=== PATIENT | female | born 1965 | race African-American/Black ===

== ENCOUNTER 2017-07-15 10:53 | Inpatient (IN) | payer OTHER ==
--- NOTE | 2017-07-15 11:55 | ER Document Report ---
ED General - General Mode of Arrival: Ambulatory Information source: Patient TRAVEL OUTSIDE OF THE [place] IN LAST 30 DAYS: No <TYRELL SEBASTIAN - Last Filed: 07/15/17 15:53> <YANA MARES - Last Filed: 07/15/17 15:56> - General Chief Complaint: Doesn't Feel Right Stated Complaint: UNABLE TO CONTROL RIGHT SIDE Time Seen by Provider: 07/15/17 11:48 Notes: Patient is a 51-year-old female with a history of hypertension, diabetes and high cholesterol presents to the emergency department complaining of being unable to control her right arm onset yesterday around 1700 which improved then worsened again this morning although improving at bedside. Patient states that her right arm would involuntarily shake intermittently. Patient and sister also mentions recognizing some changes in her voice and slurring of speech. (TYRELL SEBASTIAN) - Related Data Allergies/Adverse Reactions: No Known Allergies Allergy (Verified 07/15/17 13:21) Past Medical History - General Information source: Patient - Social History Smoking Status: Never Smoker Cigarette use (# per day): No Chew tobacco use (# tins/day): No Smoking Education Provided: No Frequency of alcohol use: None Drug Abuse: None Family History: Reviewed & Not Pertinent - Past Medical History Cardiac Medical History: Reports: Hx Hypercholesterolemia, Hx Hypertension Endocrine Medical History: Reports: Hx Diabetes Mellitus Type 2 <TYRELL SEBASTIAN - Last Filed: 07/15/17 15:53> Review of Systems - Review of Systems Constitutional: No symptoms reported EENT: No symptoms reported Cardiovascular: No symptoms reported Respiratory: No symptoms reported Gastrointestinal: No symptoms reported Genitourinary: No symptoms reported Female Genitourinary: No symptoms reported Musculoskeletal: See HPI Skin: No symptoms reported Hematologic/Lymphatic: No symptoms reported Neurological/Psychological: See HPI -: Yes All other systems reviewed and negative <TYRELL SEBASTIAN - Last Filed: 07/15/17 15:53> Physical Exam <TYRELL SEBASTAIN - Last Filed: 07/15/17 15:53> <YANA MARES - Last Filed: 07/15/17 15:56> - Vital signs Vitals: Temp Pulse Resp BP Pulse Ox 97.6 F 110 H 17 161/92 H 97 07/15/17 11:11 07/15/17 11:11 07/15/17 11:11 07/15/17 11:11 07/15/17 11:11 - Notes Notes: GENERAL: Alert, interacts well. No acute distress. HEAD: Normocephalic, atraumatic. EYES: Pupils equal, round, and reactive to light. Extraocular movements intact. ENT: Oral mucosa moist, tongue midline. NECK: Full range of motion. Supple. Trachea midline. LUNGS: Clear to auscultation bilaterally, no wheezes, rales, or rhonchi. No respiratory distress. HEART: Regular rate and rhythm. No murmurs, gallops, or rubs. ABDOMEN: Soft, non-tender. Non-distended. Bowel sounds present in all 4 quadrants. EXTREMITIES: Moves all 4 extremities spontaneously. No edema, radial and dorsalis pedis pulses 2/4 bilaterally. No cyanosis. NEUROLOGICAL: See NIH. 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 Some ataxia with heel to buckner on the right. Not a TPA candidate due to rapidly improving symptoms. PSYCH: Normal affect, normal mood. SKIN: Warm, dry, normal turgor. No rashes or lesions noted. 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 Cardiac enzymes are negative, CT scan of the head is negative for acute bleed or large stroke, chest x-ray is unremarkable. Patient is not a candidate for TPA as her symptoms started yesterday and have been waxing and waning she is both out of timeframe and more consistent with a TIA. Patient was discussed with Dr. Rm who is going to accept the patient to her service on the telemetry care unit. Patient and sister are aware of why she will not be receiving TPA. (YANA MARES ) - Vital Signs Vital signs: Temp Pulse Resp BP Pulse Ox 97.6 F 109 H 20 146/98 H 96 07/15/17 11:11 07/15/17 11:50 07/15/17 14:31 07/15/17 14:31 07/15/17 14:31 - Laboratory Laboratory results interpreted by me: 07/15/17 07/15/17 12:08 13:04 WBC 12.3 H RBC 5.51 H Seg Neutrophils % 83.2 H Lymphocytes % 12.9 L Absolute Neutrophils 10.2 H Creatinine 0.43 L Glucose 404 H* Calcium 10.9 H Creatine Kinase 24 L - EKG Interpretation by Me Additional EKG results interpreted by me: 07/15/17 14:18 EKG shows sinus tachycardia at a rate of 109, normal axis, normal intervals, no ST segment elevations or depressions, no T-wave inversions, rapid R-wave progression, LVH per my interpretation. 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 of insulin; Z79.4 - jail (current) use of insulin; Z79.4 - keno terminal operator (current) use of insulin; Z79.4 - jail (current) use of insulin Hypertension Qualifiers: Hypertension type: essential hypertension Qualified Code(s): I10 - Essential ( primary) hypertension Stroke Qualifiers: CVA mechanism: unspecified Qualified Code(s): I63.9 - Cerebral infarction, unspecified Condition: Fair Disposition: ADMITTED INPATIENT Scribe Attestation: 07/15/17 15:56 I personally performed the services described in the documentation, reviewed and edited the documentation which was dictated to the scribe in my presence, and it accurately records my words and actions. (YANA MRAES) ED NIH Stroke Scale - NIH Stroke Scale *: 1. NIH scale should be completed with appropriate accompanying assessment tools. *: 2. The NIH should reflect what the patient is capable of doing and should not be coached by the clinician. 1a. Level of Consciousness: 0=Alert;keenly responsive -: 1=Drowsy -: 2=Obtunded -: 3=Coma/unresponsive or reflex to noxious stimuli. 1a. Responses: 0 1b. Orientation Questions: a. What month is it? -: b. How old are you? -: 0=Answers both questions correctly. -: 1=Answers one question correctly or patient is intubated or has orotracheal trauma. -: 2=Answers neither question correctly. 1b. Responses: 0 1c. Response to commands: a. Open and close eyes? -: b. 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 -: Credit is given despite weakness. Demonstration of task is permitted. Substitute command if hands cannot be used. -: 0=Performs both tasks correctly -: 1=Performs one task correctly -: 2=Performs neither task correctly 1c. Responses: 0 2. Gaze: Establish eye contact and instruct patient to "Follow my finger" -: 0=Normal -: 1=Partial gaze palsy. Gaze is abnormal in one or both eyes, but where forced deviation or total gaze paresis is not present. -: 2=Forced deviation or total gaze paresis. 2. Responses: 0 3. Visual Sloan: Sees fingers in all four quadrants. -: 0=No visual loss. -: 1=Partial hemianopsia. -: 2=Complete hemianopsia. -: 3=Bilateral hemianopsia (including Cortical blindness) 3. Responses: 0 4. Facial Movement: Instruct patient to: -: a. Show me your teeth -: b. Raise your eyebrows -: c. Close your eyes -: d. Smile -: 0=Normal symmetrical movement -: 1=Minor paralysis (flattened nasolabial fold, asymmetry on smiling). -: 2=Partial paralysis (total or near total paralysis of lower face). -: 3=Complete paralysis of upper and lower face 4. Responses: 0 5. Motor functions (left arm): Alternate sides and extend each arm with palms down (90 degrees if sitting or 45 degrees for supine). -: 0=No drift;limb holds for full 10 seconds. -: 1=Drift; limb holds but drifts down before full 10 seconds, but does not hit bed. -: 2=Some effort against gravity; limb cannot get to or maintain position. -: 3=No effort against gravity; limb falls. -: 4=No movement. -: UN=Amputation, joint fusion, explain in comments. 5. Responses (left arm): 0 5. Motor Functions (right arm): Alternate sides and extend each arm with palms down (90 degrees if sitting or 45 degrees for supine). -: 0=No drift;limb holds for full 10 seconds. -: 1=Drift; limb holds but drifts down before full 10 seconds, but does not hit bed. -: 2=Some effort against gravity; limb cannot get to or maintain position. -: 3=No effort against gravity; limb falls. -: 4=No movement. -: UN=Amputation, joint fusion, explain in comments. 5. Responses (right arm): 0 6. Motor Functions (left leg): With patient lying supine, alternate sides and extend each leg (30 degrees always while supine). -: 0=No drift, leg holds position for full 5 seconds -: 1=Drift; leg falls before full 5 seconds but does not hit bed. -: 2=Some effort against gravity, leg falls to bed but some effort against gravity. -: 3=No effort against gravity, leg falls to bed immediately. -: 4=No movement. -: UN=Amputation, joint fusion; explain in comments. 6. Responses (left leg): 0 6. Motor Functions (right leg): With patient lying supine, alternate sides and extend each leg (30 degrees always while supine). -: 0=No drift, leg holds position for full 5 seconds -: 1=Drift; leg falls before full 5 seconds but does not hit bed. -: 2=Some effort against gravity, leg falls to bed but some effort against gravity. -: 3=No effort against gravity, leg falls to bed immediately. -: 4=No movement. -: UN=Amputation, joint fusion; explain in comments. 6. Responses (right leg): 1 7. Limb Ataxia: With eyes open instruct patient to: -: a. "Touch your finger to your nose". -: b. "Touch your heel to your buckner" -: 0=Absent -: 1=Present in one limb. -: 2=Present in two limbs. -: UN=Amputation or joint fusion; explain in comments. 7. Responses: 1 7. If ataxia present choose as appropriate: Right leg 8. Sensory: Test sensation using pinprick or noxious stimuli. Test as many body parts as possible. -: 0=Normal;no sensory loss -: 1=Mile to moderate sensory loss (patient feels pin prick but is less sharp on affected side). -: 2=Severe or total sensory loss. 8. Responses: 0 9. Best Language: Instruct patient to: -: a. "Describe what you see in this picture." -: b. "Name the items in this picture." -: c. "Read these sentences." -: 0=No aphasia, normal -: 1=Mild to moderate aphasia. -: 2=Severe aphasia -: 3=Mute, global aphasia, no usable speech or auditory comprehension. 9. Responses: 1 10. Articulation, Dysarthia: Instruct patient to: -: "Read these words" or "Repeat these words" -: 0=Normal -: 1=Mild to moderate; patient may slur some words but can be understood without difficulty. -: 2=Severe; patients speech so slurred as to be unintelligible in the absence of dysphasia. -: UN=Intubated or other physical barrier, explain in comments. 10. Responses: 1 11. Extinction or inattention: 0=No abnormality -: 1= Visual, tactile, auditory, spatial, or personal inattention or extinction to bilateral simulation in one or the sensory modalities. -: 2=Profound ruth-inattention or ruth-inattention to more than one modality; does not recognize own hand. 11. Responses: 0 Total Score: 4 <TYRELL SEBASTIAN - Last Filed: 07/15/17 15:53> ED [employer]/Exc Criteria - Date/Time patient last known well: Date/Time: 07/24/2016 17:00 - Date/Time patient arrived in ED: _: 07/15/2017 10:53 - Inclusion Criteria: 1: Patient presented to ED within 3 hours of acute ischemic stroke symptom onset ? -: No 2: Did baseline CT exclude intracranial hemorrhage and/or other risk factors? 3: Is the age of the patient 18 years of age or greater? -: Yes : If any of the above questions are answered "NO" then stop, patient is not a candidate for Alteplase, : If all of the above questions are answered "YES" then continue with Exclusion Criteria. - The patient is: -: Included and is eligible to receive Alteplase. *Initiate bed placement at higher level of care* --: No Reviewd risks & benefits of thrombolytic therapy: I have reviewed the risks and benefits of thrombolytic therapy with the patient and/or his/her family. -: Excluded and not eligible to receive Alteplase for the above exclusions. --: Yes -: Excluded and not eligible to receive Alteplase for other reasons (specify in comments): <TYRELL SEBASTIAN - Last Filed: 07/15/17 15:53> - Inclusion Criteria: 1: Patient presented to ED within 3 hours of acute ischemic stroke symptom onset ? 2: Did baseline CT exclude intracranial hemorrhage and/or other risk factors? -: Yes 3: Is the age of the patient 18 years of age or greater? : If any of the above questions are answered "NO" then stop, patient is not a candidate for Alteplase, : If all of the above questions are answered "YES" then continue with Exclusion Criteria. - Diagnosis of TIA: -: Patient presented with transient symptoms that are now resolved and no other neurologic findings are currently present. List symptoms in comments. -: Patient is NOT a candidate for tPA. -: ____(put name in comment) has been consulted for admission and continued evaluation of risk factor assessment. Comment: Sujey <AYNA MARES - Last Filed: 07/15/17 15:56>
[2017-07-15 12:46] LABS: ABSOLUTE LYMPHOCYTES (AUTO) 1.6 10^3/uL (0.5-4.7); ABSOLUTE MONOCYTES (AUTO) 0.4 10^3/uL (0.1-1.4); ABSOLUTE NEUT (AUTO) 10.2 10^3/uL (1.7-8.2); BASOPHILS % (AUTO) 0.4 % (0-2); EOSINOPHILS % (AUTO) 0.1 % (0-6); HEMATOCRIT 46.3 % (36.0-47.0); LYMPHOCYTES % (AUTO) 12.9 % (13-45); MEAN CORPUSCULAR HEMOGLOBIN 27.2 pg (27.0-33.4); MEAN CORPUSCULAR HGB CONC 32.4 g/dL (32.0-36.0); MEAN CORPUSCULAR VOLUME 84 fl (80-97); MONOCYTES % (AUTO) 3.4 % (3-13); RED BLOOD COUNT 5.51 10^6/uL (3.72-5.28); RED CELL DISTRIBUTION WIDTH 13.1 % (11.5-14.0); SEGMENTED NEUTROPHILS % (AUTO) 83.2 % (42-78); TOTAL CELLS COUNTED % (AUTO) 100 %; WHITE BLOOD COUNT 12.3 10^3/uL (4.0-10.5)
--- NOTE | 2017-07-15 12:56 | RADIOLOGY REPORT (SQ) ---
EXAM DESCRIPTION: CT HEAD WITHOUT COMPLETED DATE/TIME: 07/15/2017 12:43 pm REASON FOR STUDY: right sided weakness COMPARISON: None. TECHNIQUE: Axial images acquired through the brain without intravenous contrast. Images reviewed wi th bone, brain and subdural windows. CT Images stored on PACS. All CT scanners at this facility use dose modulation, iterative reconstruction, and/or weight based d osing when appropriate to reduce radiation dose to as low as reasonably achievable (ALARA). [facility]: Dose Right [facility]: CareDose [facility]: Dose Right [facility]: Teradose 4D [facility]: Smart WhereNet RADIATION DOSE: CT Rad equipment meets quality standard of care and radiation dose reduction techniq ues were employed. CTDIvol: 53.2 mGy. DLP: 1017 mGy-cm. mGy. LIMITATIONS: None. FINDINGS: VENTRICLES: Normal size and contour. CEREBRUM: No masses. No hemorrhage. No midline shift. No evidence for acute infarction. Normal gra y/white matter differentiation. No areas of low density in the white matter. CEREBELLUM: No masses. No hemorrhage. No alteration of density. No evidence for acute infarction. EXTRAAXIAL SPACES: No fluid collections. No masses. ORBITS AND GLOBE: No intra- or extraconal masses. Normal contour of globe without masses. CALVARIUM: No fracture. PARANASAL SINUSES: No fluid. Trace mucosal thickening left maxillary antrum. SOFT TISSUES: No mass or hematoma. OTHER: No other significant finding. IMPRESSION: NORMAL BRAIN CT WITHOUT CONTRAST. EVIDENCE OF ACUTE STROKE: No COMMENT: Quality ID # [id number]: Final reports with documentation of one or more dose reduction techniques (e.g., Automated exposure control, adjustment of the mA and/or kV according to patient size, use of iterative reconstruction technique) TECHNICAL DOCUMENTATION: JOB ID: [id number] [employer]- All Rights Reserved Reading location - IP/workstation name: [facility]
--- NOTE | 2017-07-15 12:58 | RADIOLOGY REPORT (SQ) ---
EXAM DESCRIPTION: CHEST SINGLE VIEW COMPLETED DATE/TIME: 07/15/2017 12:47 pm REASON FOR STUDY: right sided weakness COMPARISON: None. EXAM PARAMETERS: NUMBER OF VIEWS: One view. TECHNIQUE: Single frontal radiographic view of the chest acquired. RADIATION DOSE: NA LIMITATIONS: None. FINDINGS: LUNGS AND PLEURA: No opacities, masses or pneumothorax. No pleural effusion. MEDIASTINUM AND HILAR STRUCTURES: No masses. Contour normal. HEART AND VASCULAR STRUCTURES: Heart normal in size. Normal vasculature. BONES: No acute findings. HARDWARE: None in the chest. OTHER: No other significant finding. IMPRESSION: NO ACUTE RADIOGRAPHIC FINDING IN THE CHEST. TECHNICAL DOCUMENTATION: JOB ID: [id number] [employer]- All Rights Reserved Reading location - IP/workstation name: [email or web address]
[2017-07-15 12:59] LABS: PLATELET COUNT 321 10^3/uL (150-450)
--- NOTE | 2017-07-15 13:01 | EKG REPORT ---
SEVERITY:- ABNORMAL ECG - SINUS TACHYCARDIA CONSIDER LEFT VENTRICULAR HYPERTROPHY : Confirmed by: Julio Vang MD 15-Jul-2017 13:00:50
[2017-07-15 13:26] LABS: INTERNATIONAL RATION (INR) 0.93; PARTIAL THROMBOPLASTIN TIME 28.9 SEC (23.5-35.8); PROTHROMBIN TIME 12.9 SEC (11.4-15.4)
[2017-07-15 13:35] LABS: ALANINE AMINOTRANSFERASE 39 U/L (9-52); ALBUMIN 4.8 g/dL (3.5-5.0); ALKALINE PHOSPHATASE 126 U/L (38-126); ANION GAP 13 (5-19); ASPARTATE AMINO TRANSFERASE 34 U/L (14-36); BILIRUBIN,DIRECT 0.4 mg/dL (0.0-0.4); BILIRUBIN,TOTAL 0.6 mg/dL (0.2-1.3); BLOOD UREA NITROGEN 13 mg/dL (7-20); CALCIUM 10.9 mg/dL (8.4-10.2); CARBON DIOXIDE 25 mmol/L (22-30); CHLORIDE 103 mmol/L (98-107); CREATINE KINASE 24 U/L (30-135); POTASSIUM 4.7 mmol/L (3.6-5.0); SODIUM 140.7 mmol/L (137-145)
[2017-07-15 13:48] LABS: CREATINE KINASE MB < 0.22 ng/mL (<4.55); TROPONIN I < 0.012 ng/mL
[2017-07-15 13:49] LABS: GLUCOSE 404 mg/dL (75-110)
[2017-07-15] MEDS ORDERED: INSULIN REG, HUMAN 100 UNIT/ML 3 ML VIAL (PYX) SUBCUT ONE (14:16)
[2017-07-15] MEDS ORDERED: ONDANSETRON HCL INJ/PF 4 MG/2 ML SDV IV PRN (14:18)
[2017-07-15] MEDS ORDERED: OXYCODONE-ACETAMINOPHEN 5-325 MG TABLET PO PRN (14:18)
[2017-07-15] MEDS ORDERED: ACETAMINOPHEN 325 MG TABLET PO PRN (14:18)
[2017-07-15] MEDS ORDERED: ZOLPIDEM TARTRATE 5 MG TABLET PO PRN (14:18)
[2017-07-15] MEDS ORDERED: DEXTROSE 40% GEL 15 GM TUBE PO PRN ×2 (14:26)
[2017-07-15] MEDS ORDERED: DEXTROSE 50%-WATER 25 GM/50 ML DISP.SYRIN IV PRN ×2 (14:26)
[2017-07-15] MEDS ORDERED: GLUCAGON,HUMAN RECOMB 1 MG INJ IM PRN (14:26)
[2017-07-15] MEDS ORDERED: ASPIRIN 325 MG TABLET PO ONE (15:00)
--- NOTE | 2017-07-15 15:55 | RADIOLOGY REPORT (SQ) ---
EXAM DESCRIPTION: MRI HEAD WITHOUT COMPLETED DATE/TIME: 07/15/2017 3:39 pm REASON FOR STUDY: acute neurologic syndrome COMPARISON: CT brain 07/15/2017 TECHNIQUE: Multiplanar imaging includes non-contrasted T1, T2, FLAIR, and diffusion with ADC map seq uences. Images stored on PACS. LIMITATIONS: None. FINDINGS: ANATOMY: No developmental anomalies. Normal vascular flow voids. Pituitary fossa normal. CSF SPACES: Normal in size and contour. No hemorrhage. CEREBRUM: Sulci and gyri normal in size and contour. Minimal spotty increased bifrontal and bipariet al white matter signal on FLAIR imaging from chronic small vessel ischemic change. No evidence of ac bettye hemorrhage, mass, or extraaxial fluid collection. POSTERIOR FOSSA: Diffusion-weighted images are positive for several small acute nonhemorrhagic infarc ts in the right cerebellar hemisphere. Remainder of the posterior fossa structures are otherwise unr emarkable. No hemorrhage. No mass effect or midline shift. Basilar cisterns unremarkable. DIFFUSION IMAGING: Positive for acute ischemic change in the right cerebellar hemisphere ORBITS: No masses. Globes normal. PARANASAL SINUSES: No fluid levels. Mucosa normal. OTHER: Report called to Dr. Rm IMPRESSION: Small nonhemorrhagic acute right cerebellar infarcts are present. EVIDENCE OF ACUTE STROKE: Yes COMMENT: Pertinent findings on the imaging study reported as a CRITICAL RESULT to ROCÍO RM MD at15:40 on 07/15/2017. Category of Critical Result: Acute nonhemorrhagic right cerebellar infarcts TECHNICAL DOCUMENTATION: JOB ID: [id number] [employer]- All Rights Reserved Reading location - IP/workstation name: [email or web address]
[2017-07-15] MEDS: INSULIN LISPRO 100 UNIT/ML 3 ML VIAL SUBCUT SCH (16:46)
[2017-07-15] MEDS ORDERED: NORMAL SALINE 1000 ML 1,000 ML IV ONE (17:03)
--- NOTE | 2017-07-15 17:03 | PDOC H&P ---
History of Present Illness History of Present Illness: ALEJANDRO MERA is a 51 year old female Past Medical History Cardiac Medical History: Reports: Hyperlipidema, Hypertension Pulmonary Medical History: Reports: None EENT Medical History: Reports: None Neurological Medical History: Reports: None Endocrine Medical History: Reports: Diabetes Mellitus Type 2 Renal/ Medical History: Reports: None Malignancy Medical History: Reports: None, Other - Non-Hodgkin's lymphoma GI Medical History: Reports: None Musculoskeltal Medical History: Reports: None Skin Medical History: Reports: None Psychiatric Medical History: Reports: None Traumatic Medical History: Reports: None Hematology: Reports: None Infectious Medical History: Reports: None Past Surgical History Past Surgical History: Reports: Other - Port-A-Cath, Sinus surgery Social History Information Source: Patient Lives with: Family Smoking Status: Never Smoker Frequency of Alcohol Use: None Hx Recreational Drug Use: Yes Drugs: None Hx Prescription Drug Abuse: No - Advance Directive Resuscitation Status: Full Code Family History Family History: Reviewed & Not Pertinent, CAD, CVA, DM, Hyperlipidemia, Malignancy Parental Family History Reviewed: Yes Children Family History Reviewed: Yes Sibling(s) Family History Reviewed.: Yes Medication/Allergy Home Medications: Insulin Aspart [Novolog Flexpen] 0 unit SUBCUT .SLD SCALE 07/15/17 Insulin Detemir [Levemir] 45 unit SQ QHS 07/15/17 Lisinopril 10 mg PO DAILY 07/15/17 Allergies/Adverse Reactions: No Known Allergies Allergy (Verified 07/15/17 13:21) Review of Systems Constitutional: PRESENT: weight loss. ABSENT: anorexia, chills, fatigue, headache(s) Eyes: ABSENT: visual disturbances Ears: ABSENT: hearing changes Nose, Mouth, and Throat: ABSENT: mouth pain, sore throat Cardiovascular: ABSENT: chest pain, dyspnea on exertion, edema Respiratory: ABSENT: dyspnea, hemoptysis Gastrointestinal: ABSENT: abdominal pain, nausea, vomiting Genitourinary: ABSENT: dysuria Musculoskeletal: ABSENT: deformity Neurological: PRESENT: abnormal speech, focal weakness Endocrine: PRESENT: polydipsia, polyuria Hematologic/Lymphatic: ABSENT: lymphadenopathy Physical Exam Vital Signs: Temp Pulse Resp BP Pulse Ox 97.6 F 109 H 16 158/96 H 98 07/15/17 11:11 07/15/17 11:50 07/15/17 11:50 07/15/17 11:50 07/15/17 11:50 Intake & Output 07/14/17 07/15/17 07/16/17 06:59 06:59 06:59 Weight 81.6 kg General appearance: PRESENT: no acute distress, cooperative, well-developed, well-nourished Head exam: PRESENT: atraumatic, normocephalic Eye exam: PRESENT: conjunctiva pink, EOMI, PERRLA Ear exam: PRESENT: normal external ear exam Mouth exam: PRESENT: moist Neck exam: PRESENT: full ROM. ABSENT: carotid bruit, JVD, lymphadenopathy, tenderness, thyromegaly Respiratory exam: PRESENT: clear to auscultation rory Cardiovascular exam: PRESENT: RRR. ABSENT: diastolic murmur, systolic murmur Vascular exam: PRESENT: normal capillary refill GI/Abdominal exam: PRESENT: soft. ABSENT: normal bowel sounds, tenderness Extremities exam: PRESENT: full ROM. ABSENT: pedal edema Musculoskeletal exam: PRESENT: ambulatory Neurological exam: PRESENT: alert, awake, oriented to person, oriented to place , oriented to time, oriented to situation, CN II-XII grossly intact. ABSENT: aphasic Psychiatric exam: PRESENT: appropriate affect, normal mood Skin exam: PRESENT: intact, normal color Results Laboratory Results: 07/15/17 12:08 07/15/17 13:04 07/15/17 07/15/17 07/15/17 12:08 12:08 13:04 WBC 12.3 H RBC 5.51 H Hgb 15.0 Hct 46.3 MCV 84 MCH 27.2 MCHC 32.4 RDW 13.1 Plt Count 321 Seg Neutrophils % 83.2 H Lymphocytes % 12.9 L Monocytes % 3.4 Eosinophils % 0.1 Basophils % 0.4 Absolute Neutrophils 10.2 H Absolute Lymphocytes 1.6 Absolute Monocytes 0.4 Absolute Eosinophils 0.0 Absolute Basophils 0.0 Sodium Cancelled 140.7 Potassium Cancelled 4.7 Chloride Cancelled 103 Carbon Dioxide Cancelled 25 Anion Gap Cancelled 13 BUN Cancelled 13 Creatinine Cancelled 0.43 L Est GFR ( Amer) Cancelled > 60 Est GFR (Non-Af Amer) Cancelled > 60 Glucose Cancelled 404 H* Calcium Cancelled 10.9 H Total Bilirubin Cancelled 0.6 AST Cancelled 34 ALT Cancelled 39 Alkaline Phosphatase Cancelled 126 Total Protein Cancelled 8.0 Albumin Cancelled 4.8 07/15/17 07/15/17 07/15/17 12:08 12:08 13:04 Creatine Kinase Cancelled 24 L CK-MB (CK-2) Cancelled Troponin I Cancelled 07/15/17 13:04 Creatine Kinase CK-MB (CK-2) < 0.22 Troponin I < 0.012 Impressions: Chest X-Ray 07/15/17 12:18 IMPRESSION: NO ACUTE RADIOGRAPHIC FINDING IN THE CHEST. Head CT 07/15/17 12:18 IMPRESSION: NORMAL BRAIN CT WITHOUT CONTRAST. EVIDENCE OF ACUTE STROKE: No Assessment & Plan - Diagnosis (1) Dysarthria due to acute cerebellar stroke Is this a current diagnosis for this admission?: Yes Plan: MRI requested showed cerebellar findings of acute stroke. Patient informed. Will Place Lipitor and enteric-coated aspirin. Will discuss later with neurologist on-call to look for advise. However patient is not a candidate for TPA but just round up the treatment on this patient (2) Hypertension Qualifiers: Hypertension type: essential hypertension Qualified Code(s): I10 - Essential (primary) hypertension Is this a current diagnosis for this admission?: Yes Plan: For now will hold off aggressive treatment in the setting of acute stroke (3) Type 2 diabetes mellitus with hyperglycemia Qualifiers: Diabetes mellitus terminal superintendent insulin use: with longterm use Qualified Code( s): E11.65 - Type 2 diabetes mellitus with hyperglycemia; Z79.4 - terminal superintendent ( current) use of insulin; Z79.4 - [facility] (current) use of insulin; Z79.4 - terminal superintendent (current) use of insulin; Z79.4 - [facility] (current) use of insulin Is this a current diagnosis for this admission?: Yes Plan: Patient will be placed on long-acting insulin, pre-meal Humalog and Humalog sliding scale with bedside glucose before meals and at bedtime. Will request hemoglobin A1c. Patient will be placed on Lipitor. - Time Time Spent: 30 to 50 Minutes Medications reviewed and adjusted accordingly: Yes Anticipated discharge: Home Within: within 24 hours - Inpatient Certification Based on my medical assessment, after consideration of the patient's comorbidities, presenting symptoms, or acuity I expect that the services needed warrant INPATIENT care.: Yes I certify that my determination is in accordance with my understanding of Medicare's requirements for reasonable and necessary INPATIENT services [42 CFR 412.3e].: Yes Medical Necessity: Need Close Monitoring Due to Risk of Patient Decompensation, Need For Continuous Telemetry Monitoring
[2017-07-15] MEDS: ATORVASTATIN CALCIUM 40 MG TABLET PO SCH (21:57)
[2017-07-15] MEDS: INSULIN LISPRO 100 UNIT/ML 3 ML VIAL SUBCUT PRN (21:58)
[2017-07-15] MEDS: HEPARIN SOD (PORCINE) 5,000 UNIT/ML 1 ML SYRINGE SUBCUT SCH (22:00)
[2017-07-15] MEDS: INSULIN GLARGINE,HUM.REC.ANLOG 300 UNIT/3 ML INSULN.PEN SUBCUT SCH (22:03)
[2017-07-16] MEDS: HEPARIN SOD (PORCINE) 5,000 UNIT/ML 1 ML SYRINGE SUBCUT SCH ×3 (06:05→21:59)
[2017-07-16 07:16] LABS: ABSOLUTE EOSINOPHILS # (AUTO) 0.1 10^3/uL (0.0-0.6); ABSOLUTE LYMPHOCYTES (AUTO) 2.3 10^3/uL (0.5-4.7); ABSOLUTE MONOCYTES (AUTO) 0.4 10^3/uL (0.1-1.4); ABSOLUTE NEUT (AUTO) 4.4 10^3/uL (1.7-8.2); BASOPHILS % (AUTO) 0.3 % (0-2); EOSINOPHILS % (AUTO) 1.3 % (0-6); HEMOGLOBIN 13.6 g/dL (12.0-15.5); LYMPHOCYTES % (AUTO) 32.4 % (13-45); MEAN CORPUSCULAR HEMOGLOBIN 27.2 pg (27.0-33.4); MEAN CORPUSCULAR HGB CONC 32.4 g/dL (32.0-36.0); MEAN CORPUSCULAR VOLUME 84 fl (80-97); MONOCYTES % (AUTO) 5.6 % (3-13); PLATELET COUNT 286 10^3/uL (150-450); RED BLOOD COUNT 5.01 10^6/uL (3.72-5.28); SEGMENTED NEUTROPHILS % (AUTO) 60.4 % (42-78); TOTAL CELLS COUNTED % (AUTO) 100 %; WHITE BLOOD COUNT 7.2 10^3/uL (4.0-10.5)
[2017-07-16 07:29] LABS: ANION GAP 9 (5-19); BLOOD UREA NITROGEN 15 mg/dL (7-20); CALCIUM 9.8 mg/dL (8.4-10.2); CARBON DIOXIDE 28 mmol/L (22-30); CHLORIDE 101 mmol/L (98-107); CHOLESTEROL 253.01 mg/dL (0-200); GLUCOSE 321 mg/dL (75-110); POTASSIUM 4.3 mmol/L (3.6-5.0); SODIUM 137.7 mmol/L (137-145); TRIGLYCERIDES 265 mg/dL (<150)
[2017-07-16 07:39] LABS: DIRECT LDL 157 mg/dL (<100)
[2017-07-16] MEDS: INSULIN LISPRO 100 UNIT/ML 3 ML VIAL SUBCUT SCH ×3 (09:51→18:03)
[2017-07-16] MEDS: INSULIN LISPRO 100 UNIT/ML 3 ML VIAL SUBCUT PRN ×2 (09:51→13:15)
[2017-07-16] MEDS: INSULIN GLARGINE,HUM.REC.ANLOG 300 UNIT/3 ML INSULN.PEN SUBCUT SCH ×2 (09:51→22:34)
[2017-07-16] MEDS: ASPIRIN 325 MG TABLET PO SCH (09:52)
[2017-07-16] MEDS: DOCUSATE SODIUM 100 MG CAPSULE PO SCH (09:52)
--- NOTE | 2017-07-16 15:57 | RADIOLOGY REPORT (SQ) ---
EXAM DESCRIPTION: CAROTID DOPPLER COMPLETED DATE/TIME: 07/16/2017 3:32 pm REASON FOR STUDY: acute neurologic syndrome COMPARISON: CT brain 07/15/2017, MRI brain 07/15/2017 TECHNIQUE: Grayscale ultrasound, Doppler velocity and spectra, and color Doppler images acquired of the extra-cranial carotid and vertebral arteries. Images stored on PACS. LIMITATIONS: None. FINDINGS: RIGHT CAROTID CCA Velocities: Within normal limits. ICA Velocities Peak systolic 0.73 m/s. End diastolic 0.16 m/s. Proximal ICA/CCA peak systolic ratio 1.9. Spectra normal. No significant plaque. LEFT CAROTID CCA Velocities: Within normal limits. ICA Velocities Peak systolic 0.80 m/s. End diastolic 0.22 m/s. Proximal ICA/CCA peak systolic ratio 1.1. Spectra normal. No significant plaque. VERTEBRAL ARTERIES: Antegrade flow. Normal waveforms. SUBCLAVIAN ARTERIES: Not evaluated OTHER: No other significant finding. IMPRESSION: NO HEMODYNAMICALLY SIGNIFICANT STENOSIS. COMMENT: Quality ID #[id number]: Velocity criteria are extrapolated from the diameter data as defined by t he Society of Radiologists in Ultrasound Consensus Conference. Radiology 2003: 229; 340-346. TECHNICAL DOCUMENTATION: JOB ID: [id number] [employer]- All Rights Reserved Reading location - IP/workstation name: [facility]
--- NOTE | 2017-07-16 17:54 | PDOC PROGRESS REPORT ---
Subjective Progress Note for:: 07/16/17 Subjective:: No complaints. Review of system All organ systems evaluated and negative except as in subjective All significant laboratories and diagnostics have been reviewed Reason For Visit: TIA UNCONTROLLED DIABETES MELLITUS Physical Exam Vital Signs: Temp Pulse Resp BP Pulse Ox 97.9 F 107 H 16 144/96 H 96 07/16/17 07:37 07/16/17 07:37 07/16/17 07:37 07/16/17 07:37 07/16/17 07:37 Intake & Output 07/15/17 07/16/17 07/17/17 06:59 06:59 06:59 Intake Total 315 Balance 315 Weight 85.4 kg General appearance: PRESENT: no acute distress, cooperative, obese Head exam: PRESENT: atraumatic, normocephalic Eye exam: PRESENT: conjunctiva pink, EOMI, PERRLA Ear exam: PRESENT: normal external ear exam Mouth exam: PRESENT: moist Neck exam: PRESENT: full ROM. ABSENT: JVD, lymphadenopathy, tenderness Respiratory exam: PRESENT: clear to auscultation rory Cardiovascular exam: PRESENT: RRR. ABSENT: diastolic murmur, systolic murmur Vascular exam: PRESENT: normal capillary refill GI/Abdominal exam: PRESENT: normal bowel sounds, soft. ABSENT: tenderness Extremities exam: PRESENT: full ROM. ABSENT: pedal edema Musculoskeletal exam: PRESENT: ambulatory Neurological exam: PRESENT: alert, awake, oriented to person, oriented to place , oriented to time, oriented to situation, CN II-XII grossly intact Psychiatric exam: PRESENT: appropriate affect, normal mood Skin exam: PRESENT: intact, normal color Results Laboratory Results: 07/16/17 06:30 07/16/17 06:30 07/16/17 07/16/17 07/16/17 06:30 06:30 06:30 WBC 7.2 RBC 5.01 Hgb 13.6 Hct 42.0 MCV 84 MCH 27.2 MCHC 32.4 RDW 13.0 Plt Count 286 Seg Neutrophils % 60.4 Lymphocytes % 32.4 Monocytes % 5.6 Eosinophils % 1.3 Basophils % 0.3 Absolute Neutrophils 4.4 Absolute Lymphocytes 2.3 Absolute Monocytes 0.4 Absolute Eosinophils 0.1 Absolute Basophils 0.0 Sodium 137.7 Potassium 4.3 Chloride 101 Carbon Dioxide 28 Anion Gap 9 BUN 15 Creatinine 0.53 Est GFR ( Amer) > 60 Est GFR (Non-Af Amer) > 60 Glucose 321 H Calcium 9.8 Magnesium 1.6 Triglycerides 265 H Cholesterol 253.01 H LDL Cholesterol Direct 157 H VLDL Cholesterol 53.0 H HDL Cholesterol 47 TSH 1.68 07/15/17 07/16/17 07/16/17 18:25 00:17 06:30 Troponin I < 0.012 < 0.012 < 0.012 Impressions: Chest X-Ray 07/15/17 12:18 IMPRESSION: NO ACUTE RADIOGRAPHIC FINDING IN THE CHEST. Head CT 07/15/17 12:18 IMPRESSION: NORMAL BRAIN CT WITHOUT CONTRAST. EVIDENCE OF ACUTE STROKE: No Head MRI 07/15/17 14:25 IMPRESSION: Small nonhemorrhagic acute right cerebellar infarcts are present. EVIDENCE OF ACUTE STROKE: Yes Assessment & Plan - Diagnosis (1) Dysarthria due to acute cerebellar stroke Is this a current diagnosis for this admission?: Yes Plan: MRI requested showed cerebellar findings of acute stroke. Patient informed. Carotid Dopplers negative. Echocardiogram pending. Continue current management. (2) Hypertension Qualifiers: Hypertension type: essential hypertension Qualified Code(s): I10 - Essential (primary) hypertension Is this a current diagnosis for this admission?: Yes Plan: For now will hold off aggressive treatment in the setting of acute stroke. To order Norvasc and lisinopril (3) Type 2 diabetes mellitus with hyperglycemia Qualifiers: Diabetes mellitus exterminator helper termite insulin use: with senior living use Qualified Code( s): E11.65 - Type 2 diabetes mellitus with hyperglycemia; Z79.4 - long-term ( current) use of insulin; Z79.4 - watermelon inspector (current) use of insulin; Z79.4 - long-term (current) use of insulin; Z79.4 - watermelon inspector (current) use of insulin Is this a current diagnosis for this admission?: Yes Plan: Wade [place], pre-meal Humalog and continue Humalog sliding scale. Patient notified about A1c result which was higher than 14 - Time Time Spent with patient: 15-24 minutes Medications reviewed and adjusted accordingly: Yes Anticipated discharge: Home Within: within 24 hours - Inpatient Certification Based on my medical assessment, after consideration of the patient's comorbidities, presenting symptoms, or acuity I expect that the services needed warrant INPATIENT care.: Yes I certify that my determination is in accordance with my understanding of Medicare's requirements for reasonable and necessary INPATIENT services [42 CFR 412.3e].: Yes Medical Necessity: Significant Comorbidiites Make Outpatient Treatment Too Risky , Need For Continuous Telemetry Monitoring
[2017-07-16] MEDS ORDERED: AMLODIPINE BESYLATE 5 MG TABLET PO SCH (18:00)
[2017-07-16] MEDS ORDERED: LISINOPRIL 10 MG TABLET PO ONE (18:30)
--- NOTE | 2017-07-16 18:34 | XCELERA REPORT ---
[address] [address] Transthoracic Echocardiogram Report Name: ALEJANDRO MERA Age: 51 yrs Gender: Female : 1965 Patient Status: Inpatient Patient Location: [address] [place] [address] Study Date: 07/16/2017 01:32 PM Height: 66 in Weight: 179 lb BSA: 1.9 m2 Procedure: A complete two-dimensional transthoracic echocardiogram was performed (2D, M-mode, spectral and color flow Doppler). The study was technically adequate with some images being suboptimal in quality. Reason For Study: acute neurologic deficit Ordering Physician: ROCÍO MENENDEZ Performed By: Triny Rivera Interpretation Summary Left ventricular systolic function is low normal. There is mild concentric left ventricular hypertrophy. The left ventricle is grossly normal size. Doppler measurements suggest pseudonormalized left ventricular relaxation, which is associated with grade II/IV or mild to moderate diastolic dysfunction Wall motion cannot be accurately commented on, but no definite regional wall motion abnormalities noted. The right ventricle is grossly normal size. The right ventricular systolic function is normal. The right atrium is normal in size The left atrial size is normal. There is a mild amount of mitral regurgitation There is no mitral valve stenosis. There is no aortic valve stenosis No aortic regurgitation is present. There is a trace or physiologic amount of tricuspid regurgitation Tricuspid regurgitation jet envelope not well defined to measure RV systolic pressure accurately. The aortic root is not well visualized but is probably normal size. The inferior vena cava appeared small and collapsed with respiration (RAP 0-5 mmHg) No definite cardiac source of CVA/TIA noted on this particular trans- thoracic study. Consider OSMAN if clinically indicated. May consider mobile cardiac telemetry monitoring (MCT) for ruling out transient AFIB. MMode/2D Measurements & Calculations RVDd: 2.2 cm LVIDd: 4.0 cm FS: 31.7 % Ao root diam: 2.6 cm IVSd: 0.96 cm LVIDs: 2.7 cm EDV(Teich): 69.9 ml LVPWd: 1.0 cm ESV(Teich): 27.7 ml Ao root area: 5.5 cm2 EF(Teich): 60.3 % LVOT diam: 2.0 cm LVOT area: 3.0 cm2 Doppler Measurements & Calculations MV E max jim: MV dec slope: Ao V2 max: LV V1 max P.6 cm/sec 392.0 cm/sec2 132.7 cm/sec 2.6 mmHg MV A max jim: MV dec time: Ao max PG: LV V1 max: 93.0 cm/sec 0.16 sec 7.0 mmHg 80.5 cm/sec MV E/A: 0.67 GILLIAN(V,D): 1.8 cm2 PA V2 max: TR max jim: 87.0 cm/sec 230.9 cm/sec PA max PG: TR max P.3 mmHg 3.0 mmHg Left Ventricle The left ventricle is grossly normal size. There is mild concentric left ventricular hypertrophy. Left ventricular systolic function is low normal. Doppler measurements suggest pseudonormalized left ventricular relaxation, which is associated with grade II/IV or mild to moderate diastolic dysfunction. Wall motion cannot be accurately commented on, but no definite regional wall motion abnormalities noted. Right Ventricle The right ventricle is grossly normal size. The right ventricular systolic function is normal. Atria The right atrium is normal in size. The left atrial size is normal. Interarterial septum not well visualized and not well dopplered. Cannot comment on ASD/PFO presence. Mitral Valve There is mild mitral leaflet calcification. There is no mitral valve stenosis. There is a mild amount of mitral regurgitation. Aortic Valve The aortic valve is grossly normal. There is no aortic valve stenosis. No aortic regurgitation is present. Tricuspid Valve The tricuspid valve is not well visualized, but is grossly normal. There is no tricuspid stenosis. There is a trace or physiologic amount of tricuspid regurgitation. Tricuspid regurgitation jet envelope not well defined to measure RV systolic pressure accurately. Pulmonic Valve The pulmonic valve is not well seen, but is grossly normal. Great Vessels The aortic root is not well visualized but is probably normal size. The inferior vena cava appeared small and collapsed with respiration (RAP 0-5 mmHg). Effusions There is no pericardial effusion. Incidental Findings No definite cardiac source of CVA/TIA noted on this particular trans- thoracic study. Consider OSMAN if clinically indicated. May consider mobile cardiac telemetry monitoring (MCT) for ruling out transient AFIB. : ROCÍO MENENDEZ > Ej Olvera
[2017-07-16] MEDS: ATORVASTATIN CALCIUM 40 MG TABLET PO SCH (21:58)
[2017-07-16] MEDS ORDERED: INSULIN GLARGINE,HUM.REC.ANLOG 300 UNIT/3 ML INSULN.PEN SUBCUT SCH (22:00)
[2017-07-16] MEDS ORDERED: IBUPROFEN 800 MG TABLET ONE (22:25)
[2017-07-17] MEDS: HEPARIN SOD (PORCINE) 5,000 UNIT/ML 1 ML SYRINGE SUBCUT SCH (06:24)
[2017-07-17] MEDS: INSULIN LISPRO 100 UNIT/ML 3 ML VIAL SUBCUT SCH (08:08)
[2017-07-17] MEDS ORDERED: FENOFIBRATE NANOCRYSTALLIZED 145 MG TABLET PO SCH (10:00)
[2017-07-17] MEDS ORDERED: LISINOPRIL 10 MG TABLET PO SCH (10:00)
[2017-07-17] MEDS: INSULIN GLARGINE,HUM.REC.ANLOG 300 UNIT/3 ML INSULN.PEN SUBCUT SCH (10:01)
[2017-07-17] MEDS: DOCUSATE SODIUM 100 MG CAPSULE PO SCH (10:02)
[2017-07-17] MEDS: ASPIRIN 325 MG TABLET PO SCH (10:02)
[2017-07-17 12:36] VITALS: BP 125/77
--- NOTE | 2017-07-17 17:18 | Physician Advisory Note ---
Physician Advisor ProgressNote .: Pursuant to the plan for [facility], I have reviewed the medical record for this patient. Physician Advisor Statement: H&P states "focal weakness" (+) on ROS - please document whether there was any hemiparesis, etc, present in addition to dysarthria. Thanks! CK
--- NOTE | 2017-07-17 18:05 | PDOC DISCHARGE SUMMARY ---
General - Admit/Disc Date/PCP Admission Date/Primary Care Provider: 07/15/17 15:13 Discharge Date: 07/17/17 - Discharge Diagnosis (1) Cerebellar stroke, acute Is this a current diagnosis for this admission?: Yes (2) Hypertension Is this a current diagnosis for this admission?: Yes (3) Type 2 diabetes mellitus with hyperglycemia Is this a current diagnosis for this admission?: Yes (4) Hyperlipidemia associated with type 2 diabetes mellitus Is this a current diagnosis for this admission?: Yes - Additional Information Resuscitation Status: Full Code Discharge Diet: Diabetic Discharge Activity: Activity As Tolerated Home Medications: Insulin Aspart [Novolog Flexpen] 0 unit SUBCUT .SLD SCALE MDD NOT CURRENTLY TAKING 07/15/17 Insulin Detemir [Levemir] 45 unit SQ QHS MDD NOT CURRENTLY TAKING 07/15/17 Lisinopril 10 mg PO DAILY MDD NOTCURRENTLY TAKING 07/15/17 Acetaminophen [Tylenol 325 mg Tablet] 325 mg PO Q4HP PRN tablet 07/17/17 Amlodipine Besylate [Norvasc 5 mg Tablet] 5 mg PO QPM tablet 07/17/17 Aspirin [Aspirin 325 mg Tablet] 325 mg PO DAILY tablet 07/17/17 Atorvastatin Calcium [Lipitor 40 mg Tablet] 40 mg PO QHS tablet 07/17/17 Fenofibrate Nanocrystallized [Tricor 145 mg Tablet] 145 mg PO DAILY tablet 03/24 Lisinopril [Prinivil 10 mg Tablet] 10 mg PO DAILY tablet 07/17/17 History of Present Illness History of Present Illness: ALEJANDRO is a 51 years old female who presented to emergency room complaining of difficulty articulating her words prior to presenting to emergency room. Patient also reported having some left-sided weakness last night. She did not make much about it and went to sleep. Upon awakening it was noted her difficulty talking. By the time she arrived to emergency room it has resolved. She denies having a similar episode. She does admit having a history of diabetes and she took herself off because he was tired of getting the insulin shots. She is currently on no medications for high blood pressure. There is a strong family history of high blood pressure, diabetes and stroke. Due to presentation being highly suggestive of a TIA the hospitalist service was consulted and prompted to admit Hospital Course Hospital Course: The patient presented with dysarthria complaints had resolved and she did not have any deficits on the left side. MRI of the head demonstrated acute findings of a cerebral stroke. Patient was placed on enteric-coated aspirin full-strength. In addition patient was placed on Lipitor 40 mg p.o. daily and TriCor for the management of hyperlipidemia. Hemoglobin A1c was obtained and was higher than 14. Patient was made aware that it was of utmost important as to achieve good control of diabetes to prevent any further complications or stroke or recurrence. She was educated about the consequences of uncontrolled diabetes including heart attack, stroke, circulation problems and kidney involvement. Carotid Dopplers were negative. Echocardiogram was consistent with diastolic dysfunction. Patient was placed on discharged on Norvasc and lisinopril. As far as the management of diabetes she was prescribed Levemir and pre-meal NovoLog. She is to follow-up with Dr. Ruiz. We hope that he will continue monitoring and adjusting insulin regimen. Patient remained stable with not recurrence of dysarthria or weakness. Recommend Dr. Ruiz to consider or drain an event monitor over 1 month to look for arrhythmias. Patient has been strongly encouraged as to lifestyle modification and appears to be motivated. Patient has been reminded to come immediately to emergency room if symptoms were to recur. Since she has been stable and achieved maximum benefit of hospitalization stay prompted to discharge Physical Exam Vital Signs: Temp Pulse Resp BP Pulse Ox 98.0 F 100 20 132/74 H 95 07/17/17 04:19 07/17/17 06:00 07/17/17 06:00 07/17/17 06:00 07/17/17 06:00 Intake & Output 07/16/17 07/17/17 07/18/17 06:59 06:59 06:59 Intake Total 315 1466 Balance 315 1466 Weight 85.4 kg 86.4 kg General appearance: PRESENT: no acute distress, cooperative, obese Head exam: PRESENT: atraumatic, normocephalic Eye exam: PRESENT: conjunctiva pink, EOMI, PERRLA Mouth exam: PRESENT: moist Neck exam: PRESENT: full ROM. ABSENT: JVD, lymphadenopathy, tenderness Respiratory exam: PRESENT: clear to auscultation rory Cardiovascular exam: PRESENT: RRR. ABSENT: diastolic murmur, systolic murmur Vascular exam: PRESENT: normal capillary refill GI/Abdominal exam: PRESENT: normal bowel sounds, soft. ABSENT: tenderness Extremities exam: PRESENT: full ROM. ABSENT: pedal edema Musculoskeletal exam: PRESENT: ambulatory Neurological exam: PRESENT: alert, awake, oriented to person, oriented to place , oriented to time, oriented to situation, CN II-XII grossly intact Psychiatric exam: PRESENT: appropriate affect, normal mood Skin exam: PRESENT: intact, normal color Results Laboratory Results: 07/16/17 06:30 07/16/17 06:30 07/16/17 07/16/17 07/16/17 06:30 06:30 06:30 WBC 7.2 RBC 5.01 Hgb 13.6 Hct 42.0 MCV 84 MCH 27.2 MCHC 32.4 RDW 13.0 Plt Count 286 Seg Neutrophils % 60.4 Lymphocytes % 32.4 Monocytes % 5.6 Eosinophils % 1.3 Basophils % 0.3 Absolute Neutrophils 4.4 Absolute Lymphocytes 2.3 Absolute Monocytes 0.4 Absolute Eosinophils 0.1 Absolute Basophils 0.0 Sodium 137.7 Potassium 4.3 Chloride 101 Carbon Dioxide 28 Anion Gap 9 BUN 15 Creatinine 0.53 Est GFR ( Amer) > 60 Est GFR (Non-Af Amer) > 60 Glucose 321 H Calcium 9.8 Magnesium 1.6 Triglycerides 265 H Cholesterol 253.01 H LDL Cholesterol Direct 157 H VLDL Cholesterol 53.0 H HDL Cholesterol 47 TSH 1.68 07/15/17 07/16/17 07/16/17 18:25 00:17 06:30 Troponin I < 0.012 < 0.012 < 0.012 Impressions: Chest X-Ray 07/15/17 12:18 IMPRESSION: NO ACUTE RADIOGRAPHIC FINDING IN THE CHEST. Head CT 07/15/17 12:18 IMPRESSION: NORMAL BRAIN CT WITHOUT CONTRAST. EVIDENCE OF ACUTE STROKE: No Head MRI 07/15/17 14:25 IMPRESSION: Small nonhemorrhagic acute right cerebellar infarcts are present. EVIDENCE OF ACUTE STROKE: Yes Carotid Doppler Study 07/16/17 00:00 IMPRESSION: NO HEMODYNAMICALLY SIGNIFICANT STENOSIS. Qualifiers - * PATEINT BEING DISCHARGED WITH ANY OF THE FOLLOWING DIAGNOSIS?: Stroke Stroke Pt being discharged on Anti-thrombolytic therapy?: Yes Stroke Pt being discharged on Anti-coagulation therapy?: Yes Stroke Pt being discharged on Statins?: Yes Plan Discharge Plan: Patient will be discharged home. She is to follow-up with Dr. Ruiz as scheduled. Time Spent: Less than 30 Minutes
== END 2017-07-17 13:14 | disposition home or self-care (01) | DRG 65 ==
LOC: ER 10:53 → EH 15:13 → OBSVTOIN 15:13 → INTOOBSV 15:13 → 3S 17:40 → OBSVTOIN 07-16 14:16 → UNDODISIN 07-17 13:14
PROVIDERS: ADMIT Family Medicine; ATTEND Family Medicine
DX: I63.341 Cerebral infarction due to thrombosis of right cerebellar artery (principal); G81.94 Hemiplegia, unspecified affecting left nondominant side; C85.90 Non-Hodgkin lymphoma, unspecified, unspecified site; R47.1 Dysarthria and anarthria; E11.65 Type 2 diabetes mellitus with hyperglycemia; I10 Essential (primary) hypertension; E78.00 Pure hypercholesterolemia, unspecified; I25.2 Old myocardial infarction; Z79.4 Long term (current) use of insulin; Z79.899 Other long term (current) drug therapy; Z82.3 Family history of stroke; Z83.3 Family history of diabetes mellitus; Z80.9 Family history of malignant neoplasm, unspecified; Z82.49 Family history of ischemic heart disease and other diseases of the circulatory system
CPT/HCPCS: 36415; 70450; 70551; 71045; 80048; 80053; 80061; 82550; 82553; 82962; 83036; 83735; 84443; 84484; 85025; 85610; 85730; 93005; 93010; 93306; 93880; 99284; G0378; J1644; J1815; J3490; J7030

== ENCOUNTER 2017-07-20 19:14 | Emergency (ER) | payer OTHER ==
--- NOTE | 2017-07-20 19:38 | RADIOLOGY REPORT (SQ) ---
EXAM DESCRIPTION: CT HEAD WITHOUT COMPLETED DATE/TIME: 07/20/2017 7:24 pm REASON FOR STUDY: stroke alert COMPARISON: 07/15/2017 TECHNIQUE: Axial images acquired through the brain without intravenous contrast. Images reviewed wi th bone, brain and subdural windows. Additional sagittal and coronal reconstructions were generated. Images stored on PACS. All CT scanners at this facility use dose modulation, iterative reconstruction, and/or weight based d osing when appropriate to reduce radiation dose to as low as reasonably achievable (ALARA). [facility]: Dose Right [facility]: CareDose [facility]: Dose Right [facility]: Teradose 4D [facility]: girnarsoft RADIATION DOSE: mGy. LIMITATIONS: None. FINDINGS: VENTRICLES: Normal size and contour. CEREBRUM: No masses. No hemorrhage. No midline shift. No evidence for acute infarction. Normal gra y/white matter differentiation. No areas of low density in the white matter. CEREBELLUM: No masses. No hemorrhage. No alteration of density. No evidence for acute infarction. EXTRAAXIAL SPACES: No fluid collections. No masses. ORBITS AND GLOBE: No intra- or extraconal masses. Normal contour of globe without masses. CALVARIUM: No fracture. PARANASAL SINUSES: No fluid or mucosal thickening. SOFT TISSUES: No mass or hematoma. OTHER: No other significant finding. IMPRESSION: NORMAL BRAIN CT WITHOUT CONTRAST. EVIDENCE OF ACUTE STROKE: NO. COMMENT: Pertinent positive or negative findings of the imaging study reported as a CRITICAL EXAM deanna LLOYD MD at19:31 on 07/20/2017. Category of Critical Exam: Stroke alert Quality ID # [id number]: Final reports with documentation of one or more dose reduction techniques (e.g., Au tomated exposure control, adjustment of the mA and/or kV according to patient size, use of iterative reconstruction technique) TECHNICAL DOCUMENTATION: JOB ID: [id number] [employer]- All Rights Reserved Reading location - IP/workstation name: [email or web address]
--- NOTE | 2017-07-20 19:39 | RADIOLOGY REPORT (SQ) ---
EXAM DESCRIPTION: CHEST SINGLE VIEW COMPLETED DATE/TIME: 07/20/2017 7:32 pm REASON FOR STUDY: stroke alert COMPARISON: 07/15/2017 EXAM PARAMETERS: NUMBER OF VIEWS: One view. TECHNIQUE: Single frontal radiographic view of the chest acquired. RADIATION DOSE: NA LIMITATIONS: None. FINDINGS: LUNGS AND PLEURA: No opacities, masses or pneumothorax. No pleural effusion. MEDIASTINUM AND HILAR STRUCTURES: No masses. Contour normal. HEART AND VASCULAR STRUCTURES: Heart normal in size. Normal vasculature. BONES: No acute findings. HARDWARE: None in the chest. OTHER: No other significant finding. IMPRESSION: NO ACUTE RADIOGRAPHIC FINDING IN THE CHEST. TECHNICAL DOCUMENTATION: JOB ID: [id number] [employer]- All Rights Reserved Reading location - IP/workstation name: [email or web address]
[2017-07-20 20:05] LABS: ABSOLUTE EOSINOPHILS # (AUTO) 0.1 10^3/uL (0.0-0.6); ABSOLUTE LYMPHOCYTES (AUTO) 3.9 10^3/uL (0.5-4.7); ABSOLUTE MONOCYTES (AUTO) 0.6 10^3/uL (0.1-1.4); BASOPHILS % (AUTO) 0.3 % (0-2); EOSINOPHILS % (AUTO) 0.8 % (0-6); HEMATOCRIT 40.9 % (36.0-47.0); HEMOGLOBIN 13.6 g/dL (12.0-15.5); LYMPHOCYTES % (AUTO) 40.6 % (13-45); MEAN CORPUSCULAR HEMOGLOBIN 27.9 pg (27.0-33.4); MEAN CORPUSCULAR HGB CONC 33.2 g/dL (32.0-36.0); MEAN CORPUSCULAR VOLUME 84 fl (80-97); PLATELET COUNT 313 10^3/uL (150-450); RED BLOOD COUNT 4.87 10^6/uL (3.72-5.28); RED CELL DISTRIBUTION WIDTH 13.1 % (11.5-14.0); SEGMENTED NEUTROPHILS % (AUTO) 52.3 % (42-78); TOTAL CELLS COUNTED % (AUTO) 100 %; WHITE BLOOD COUNT 9.5 10^3/uL (4.0-10.5)
--- NOTE | 2017-07-20 20:09 | EKG REPORT ---
SEVERITY:- ABNORMAL ECG - SINUS RHYTHM ANTERIOR INFARCT, OLD : Confirmed by: Julio Vang MD 20-Jul-2017 20:08:56
[2017-07-20 20:10] LABS: INTERNATIONAL RATION (INR) 0.97; PARTIAL THROMBOPLASTIN TIME 30.6 SEC (23.5-35.8); PROTHROMBIN TIME 13.4 SEC (11.4-15.4)
[2017-07-20 20:13] LABS: ALANINE AMINOTRANSFERASE 34 U/L (9-52); ALBUMIN 4.6 g/dL (3.5-5.0); ALKALINE PHOSPHATASE 81 U/L (38-126); ANION GAP 14 (5-19); ASPARTATE AMINO TRANSFERASE 33 U/L (14-36); BILIRUBIN,DIRECT 0.2 mg/dL (0.0-0.4); BILIRUBIN,TOTAL 0.4 mg/dL (0.2-1.3); BLOOD UREA NITROGEN 18 mg/dL (7-20); CARBON DIOXIDE 32 mmol/L (22-30); CHLORIDE 98 mmol/L (98-107); CREATINE KINASE 38 U/L (30-135); GLUCOSE 96 mg/dL (75-110); POTASSIUM 4.1 mmol/L (3.6-5.0); TOTAL PROTEIN 7.9 g/dL (6.3-8.2)
[2017-07-20 20:24] LABS: CREATINE KINASE MB 0.29 ng/mL (<4.55)
[2017-07-20 20:25] LABS: TROPONIN I < 0.012 ng/mL
[2017-07-20] MEDS ORDERED: CLOPIDOGREL BISULFATE 300 MG TABLET PO ONE (20:29)
--- NOTE | 2017-07-20 20:54 | ER Document Report ---
ED General - General Chief Complaint: Weakness Stated Complaint: RIGHT SIDE WEAKNESS Time Seen by Provider: 07/20/17 19:44 Mode of Arrival: Ambulatory Information source: Patient TRAVEL OUTSIDE OF THE [place] IN LAST 30 DAYS: No - HPI Patient complains to provider of: right sided weakness Onset: Just prior to arrival Onset/Duration: Sudden Quality of pain: No pain Associated symptoms: Weakness Exacerbated by: Denies Relieved by: Denies Similar symptoms previously: Yes Recently seen / treated by doctor: Yes Notes: Patient is a 51-year-old female presenting to the emergency room from home complaining of shaking and weakness to her right side that started approximately 4 minutes before prior to arriving in the emergency department, and has since resolved, she has a history of this just a few days ago and was admitted to the hospital on 07/15/2017 for possible TIA versus CVA, MRI of the brain did show 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, she was discharged home with instructions to increase aspirin to 325 daily and follow-up with a primary care provider, as well as take other medications for high blood pressure and diabetes, patient has been compliant with this, denies any symptoms at present time, symptoms lasted less than 10 minutes today - Related Data Allergies/Adverse Reactions: No Known Allergies Allergy (Verified 07/20/17 19:57) Past Medical History - General Information source: Patient - Social History Smoking Status: Never Smoker Family History: Reviewed & Not Pertinent, CAD, CVA, DM, Hyperlipidemia, Malignancy Patient has suicidal ideation: No Patient has homicidal ideation: No - Past Medical History Cardiac Medical History: Reports: Hx Hypercholesterolemia, Hx Hypertension Endocrine Medical History: Reports: Hx Diabetes Mellitus Type 2 Renal/ Medical History: Denies: Hx Peritoneal Dialysis Past Surgical History: Reports: Hx Hysterectomy, Other - Port-A-Cath, Sinus surgery - Immunizations Hx Pneumococcal Vaccination: 04/07/17 Review of Systems - Review of Systems Constitutional: No symptoms reported EENT: No symptoms reported Cardiovascular: No symptoms reported Respiratory: No symptoms reported Gastrointestinal: No symptoms reported Genitourinary: No symptoms reported Female Genitourinary: No symptoms reported Musculoskeletal: No symptoms reported Skin: No symptoms reported Hematologic/Lymphatic: No symptoms reported Neurological/Psychological: See HPI -: Yes All other systems reviewed and negative Physical Exam - Vital signs Vitals: Temp Pulse Resp BP Pulse Ox 98.2 F 100 20 161/80 H 97 07/20/17 19:40 07/20/17 19:40 07/20/17 19:40 07/20/17 19:40 07/20/17 19:40 Interpretation: Normal - General General appearance: Appears well, Alert - HEENT Head: Normocephalic, Atraumatic Eyes: Normal Pupils: PERRL - Respiratory Respiratory status: No respiratory distress Chest status: Nontender Breath sounds: Normal Chest palpation: Normal - Cardiovascular Rhythm: Regular Heart sounds: Normal auscultation Murmur: No - Abdominal Inspection: Normal Distension: No distension Bowel sounds: Normal Tenderness: Nontender Organomegaly: No organomegaly - Back Back: Normal, Nontender - Extremities General upper extremity: Normal inspection, Nontender, Normal color, Normal ROM , Normal temperature General lower extremity: Normal inspection, Nontender, Normal color, Normal ROM , Normal temperature, Normal weight bearing. No: Ash's sign - Neurological Neuro grossly intact: Yes Cognition: Normal Orientation: AAOx4 Abad Coma Scale Eye Opening: Spontaneous Abad Coma Scale Verbal: Oriented [place] Coma Scale Motor: Obeys Commands [place] Coma Scale Total: 15 Speech: Normal Motor strength normal: LUE, RUE, LLE, RLE Sensory: Normal - Psychological Associated symptoms: Normal affect, Normal mood - Skin Skin Temperature: Warm Skin Moisture: Dry Skin Color: Normal Course - Re-evaluation Re-evalutation: 07/20/17 21:34 I did review patient's findings from recent hospitalization from 01/22 to 07/17, which does show small areas of infarct in the posterior cerebellum on MRI, patient was advised to increase her aspirin dosage to 325 daily but was not started on Plavix at this time, since her symptoms lasted less than 10 minutes today and have since resolved within unremarkable workup otherwise, patient has an appointment this coming week with primary care, she was agreeable to starting Plavix therapy, was [facility] and a prescription for 3 month supply of 75 mg of Plavix daily, advised to follow-up with primary care as scheduled or return if symptoms worsen, patient acknowledges understanding and agreement with this plan - Vital Signs Vital signs: Temp Pulse Resp BP Pulse Ox 98.2 F 100 20 161/80 H 97 07/20/17 19:40 07/20/17 19:40 07/20/17 19:40 07/20/17 19:40 07/20/17 19:40 - Laboratory Result Diagrams: 07/20/17 19:40 07/20/17 19:40 Laboratory results interpreted by me: 07/20/17 19:40 Carbon Dioxide 32 H Calcium 11.0 H - Diagnostic Test Radiology reviewed: Image reviewed, Reports reviewed Discharge - Discharge Clinical Impression: Transient ischemic attack (TIA) Qualifiers: Transient cerebral ischemia type: unspecified Qualified Code(s): G45.9 - Transient cerebral ischemic attack, unspecified Condition: Stable Disposition: HOME, SELF-CARE Instructions: Transient Ischemic Attack ([facility]) Additional Instructions: Follow up with your primary care provider in one to 2 days. Return to the emergency room immediately if symptoms worsen or any additional concerns. Prescriptions: Clopidogrel Bisulfate [Plavix 75 mg Tablet] 75 mg PO DAILY #30 tablet
[2017-07-20 21:45] VITALS: BP 154/87
== END 2017-07-20 21:45 | disposition home or self-care (01) ==
LOC: ER 19:14
DX: G45.9 Transient cerebral ischemic attack, unspecified (principal); R53.1 Weakness; I10 Essential (primary) hypertension; E11.9 Type 2 diabetes mellitus without complications; Z79.899 Other long term (current) drug therapy
CPT/HCPCS: 93005; 99285; 36415; 82553; 82550; 85025; 85610; 85730; 80053; 84484; 71045; 70450; 93010; J3490